=== PATIENT | male | born 1940 | race Caucasian/White ===

== ENCOUNTER → 2023-09-11 08:29 | Outpatient (REF) | payer MEDICARE, SELFPAY | LOC: DHCBC/DCA 08:29 | PROVIDERS: ATTENDING PHYSICIAN Internal Medicine Cardiovascular Disease; FAMILY PHYSICIAN Internal Medicine | DX: I25.10 Atherosclerotic heart disease of native coronary artery without angina pectoris (principal); I49.3 Ventricular premature depolarization | CPT/HCPCS: 78452; 93017; A9500 ==

== ENCOUNTER → 2023-10-31 11:01 | Outpatient (REF) | payer MEDICARE, SELFPAY | LOC: RCS 11:01 | PROVIDERS: ATTENDING PHYSICIAN Internal Medicine Cardiovascular Disease; FAMILY PHYSICIAN Internal Medicine | DX: I25.10 Atherosclerotic heart disease of native coronary artery without angina pectoris (principal); I49.3 Ventricular premature depolarization | CPT/HCPCS: 93306 ==

== ENCOUNTER → 2024-08-06 10:06 | Outpatient (REF) | payer MEDICARE, SELFPAY | LOC: RAD 10:06 | PROVIDERS: ATTENDING PHYSICIAN Internal Medicine Cardiovascular Disease; FAMILY PHYSICIAN Internal Medicine | DX: I65.23 Occlusion and stenosis of bilateral carotid arteries (principal) | CPT/HCPCS: 93880 ==

== ENCOUNTER → 2025-02-22 12:11 | Outpatient (REF) | payer MEDICARE, SELFPAY ==
[2025-02-22] VITALS (8 sets, daily range): BP systolic 61–142; BP diastolic 68–104
[2025-02-22] MEDS: ANCEF 10 IV (12:54)
== END ==
LOC: RADI 12:11
PROVIDERS: ATTENDING PHYSICIAN Internal Medicine Hematology & Oncology; FAMILY PHYSICIAN Internal Medicine
DX: C15.5 Malignant neoplasm of lower third of esophagus (principal)
CPT/HCPCS: 36561; 76937; 77001; 99152; 99153; C1788

== ENCOUNTER 2025-02-25 06:52 | Outpatient (REF) | payer MEDICARE, SELFPAY ==
[2025-02-25] VITALS (13 sets, daily range): BP systolic 63–140; BP diastolic 66–82
[2025-02-25 07:34] LABS: Hematocrit 45.5 % (39.0-52.0); Hemoglobin 15.0 g/dL (13.0-18.0); Mean Corp Hgb Conc. 33.0 g/dL (33.0-37.0); Mean Corpuscular Volume 88.3 fL (80.0-94.0); Platelet Count 237 10^3/uL (130-400); Red Cell Dist. Width 13.2 % (11.5-14.5)
[2025-02-25 07:43] LABS: INR 1.17; PT 15.2 Sec (11.4-14.6)
== END 2025-02-25 14:01 | disposition home or self-care (01) ==
LOC: RADI 06:52
PROVIDERS: ATTENDING PHYSICIAN Internal Medicine Hematology & Oncology; FAMILY PHYSICIAN Internal Medicine
DX: C78.7 Secondary malignant neoplasm of liver and intrahepatic bile duct (principal); C15.5 Malignant neoplasm of lower third of esophagus; Z79.01 Long term (current) use of anticoagulants
CPT/HCPCS: 36415; 47000; 77012; 85027; 85610; 88307; 88333; 88341; 88342; 99152; 99153

== ENCOUNTER → 2025-03-01 09:19 | Outpatient (REF) | payer MEDICARE, SELFPAY ==
[2025-03-01 10:18] LABS: Hematocrit 47.0 % (39.0-52.0); Hemoglobin 14.9 g/dL (13.0-18.0); Mean Corp Hgb Conc. 31.7 g/dL (33.0-37.0); Mean Corpuscular Volume 90.6 fL (80.0-94.0); Nucleated Red Blood Cells % 0 % (-); Platelet Count 250 10^3/uL (130-400); Red Cell Dist. Width 13.5 % (11.5-14.5)
[2025-03-01 11:31] LABS: ALT (SGPT) 34 U/L (0-50); AST (SGOT) 43 U/L (17-59); Albumin 4.3 g/dl (3.5-5.0); Alkaline Phosphatase 323 U/L (38-126); Blood Urea Nitrogen 20 mg/dl (9-20); Calcium 9.8 mg/dl (8.4-10.2); Carbon Dioxide 29 mmol/L (22-30); Chloride 98 mmol/L (98-107); Glucose 99 mg/dl (70-99); Potassium 5.2 mmol/L (3.5-5.1); Sodium 137 mmol/L (135-145); Total Protein 7.6 g/dl (6.3-8.2); eGFR > 60.00
== END ==
LOC: REG 09:19
PROVIDERS: ATTENDING PHYSICIAN Internal Medicine Hematology & Oncology; FAMILY PHYSICIAN Internal Medicine
DX: C15.9 Malignant neoplasm of esophagus, unspecified (principal); C15.5 Malignant neoplasm of lower third of esophagus; C16.0 Malignant neoplasm of cardia
CPT/HCPCS: 36415; 80053; 85025

== ENCOUNTER → 2025-03-07 10:13 | Outpatient (REF) | payer MEDICARE, SELFPAY ==
[2025-03-07 11:26] LABS: Hematocrit 47.5 % (39.0-52.0); Hemoglobin 15.3 g/dL (13.0-18.0); Mean Corp Hgb Conc. 32.2 g/dL (33.0-37.0); Mean Corpuscular Volume 90.5 fL (80.0-94.0); Nucleated Red Blood Cells % 0 % (-); Platelet Count 213 10^3/uL (130-400); Red Cell Dist. Width 13.3 % (11.5-14.5)
[2025-03-07 11:43] LABS: ALT (SGPT) 39 U/L (0-50); AST (SGOT) 46 U/L (17-59); Albumin 4.3 g/dl (3.5-5.0); Alkaline Phosphatase 335 U/L (38-126); Blood Urea Nitrogen 16 mg/dl (9-20); Calcium 9.9 mg/dl (8.4-10.2); Carbon Dioxide 32 mmol/L (22-30); Chloride 96 mmol/L (98-107); Glucose 107 mg/dl (70-99); Potassium 5.2 mmol/L (3.5-5.1); Sodium 134 mmol/L (135-145); Total Protein 7.5 g/dl (6.3-8.2); eGFR > 60.00
== END ==
LOC: REG 10:13
PROVIDERS: ATTENDING PHYSICIAN Internal Medicine Hematology & Oncology; FAMILY PHYSICIAN Internal Medicine
DX: C15.9 Malignant neoplasm of esophagus, unspecified (principal); C16.0 Malignant neoplasm of cardia
CPT/HCPCS: 36415; 80053; 85025